=== PATIENT | female | born 2000 | race African-American/Black ===

== ENCOUNTER 2023-05-11 09:05 | Emergency (ER) | payer OTHER, SELFPAY ==
[2023-05-11 10:35] LABS: Bilirubin Negative (Negative); Blood, Urine Negative (Negative); CAUTI Indications for Culture Pelvic or flank pain; Clarity Clear (Clear); Glucose, Urine (Dipstick) Normal (Negative); Ketone, Urine Negative (Negative); Leukocyte 250 Leu/uL (Negative); Nitrite Negative (Negative); Protein, Urine (Dipstick) Negative (Neg-Trace); RBC/HPF 0-3 HPF (0-3); Specific Gravity, Urine 1.024 (1.002-1.036); Urobilinogen Normal mg/dL (Less than 2); WBC/HPF 21-50 HPF (0-3); pH, Urine 6.5 (5.0-9.0)
[2023-05-11 10:36] LABS: Bacteria/HPF 1+ HPF (None Seen); Pregnancy Test - Urine (BHCG) Negative (Negative); Pregu Control Background? CLEAR/WHITE (CLR/WHITE); Pregu Control Bar Appear? YES (CONTROL BAR); Specific Gravity 1.024 (1.002-1.036)
[2023-05-11 10:37] LABS: Urine Culture Reflex Yes Yes
[2023-05-11 11:23] LABS: SARS-CoV-2 NAA Rapid Test Not Detected (NotDetected)
== END 2023-05-11 11:00 | disposition home or self-care (01) ==
LOC: ERS 09:05
DX: N39.0 Urinary tract infection, site not specified (principal); R11.2 Nausea with vomiting, unspecified; Z20.822 Contact with and (suspected) exposure to COVID-19
CPT/HCPCS: 81001; 81025; 87077; 87086; 87186; 99284

== ENCOUNTER 2023-07-27 22:10 | Emergency (ER) | payer SELFPAY ==
[~2023-07-27 22:10] MED LIST: Iopamidol 370 76% 100 ML VIAL ONE
[2023-07-27 22:36] LABS: Bacteria/HPF None Seen HPF (None Seen); Bilirubin Negative (Negative); Blood, Urine Negative (Negative); CAUTI Indications for Culture Pelvic or flank pain; Clarity Clear (Clear); Glucose, Urine (Dipstick) Normal (Negative); Ketone, Urine 20 mg/dL (Negative); Leukocyte 250 Leu/uL (Negative); Nitrite Negative (Negative); Pregnancy Test - Urine (BHCG) Negative (Negative); Pregu Control Background? CLEAR/WHITE (CLR/WHITE); Pregu Control Bar Appear? YES (CONTROL BAR); Protein, Urine (Dipstick) 50 mg/dL (Neg-Trace); RBC/HPF 0-3 HPF (0-3); Specific Gravity 1.039 (1.002-1.036); Specific Gravity, Urine 1.039 (1.002-1.036); pH, Urine 5.5 (5.0-9.0)
[2023-07-27 22:37] LABS: Urine Culture Reflex No No
[2023-07-27 22:39] LABS: #Basophils 0.1 thou/uL (0.0-0.2); #Monocytes 0.9 thou/uL (0.11-0.59); #Neutrophils 10.5 thou/uL (1.40-6.50); %Basophils 0.5 % (0.0-1.0); %Eosinophils 0.1 % (0.0-10.0); %Lymphocytes 18.7 % (28.0-48.0); %Monocytes 6.3 % (0.0-4.0); %Neutrophils 74.2 % (31.0-61.0); Hematocrit 40.4 % (36.0-47.0); Hemoglobin 13.4 g/dL (12.0-16.0); Mean Corpuscular HGB CONC 33.2 g/dL (32.0-36.0); Mean Corpuscular Hemoglobin 27.4 pg (25.0-35.0); Mean Corpuscular Volume 82.6 fl (78.0-98.0); Mean Platelet Volume 9.2 fL (7.4-10.4); Platelet Count 313 10x3/uL (130-400); RBC Distribution Width 12.4 % (11.5-14.5); Red Blood Cell (RBC) Count 4.89 mill/uL (4.00-5.20); White Blood Cell (WBC) Count 14.2 10x3/uL (4.8-10.8)
[2023-07-28 00:10] LABS: ALT (SGPT) Less than 7 U/L (8-55); AST (SGOT) 10 U/L (5-34); Albumin 4.6 g/dL (3.5-5.0); Alkaline Phosphatase 59 U/L (40-100); Anion Gap 16 mmol/L (10-20); BUN (Urea Nitrogen) 9 mg/dL (7.0-18.7); Calc. Creatinine Clearance 0 mL/min (70-130); Calcium 9.5 mg/dL (7.8-10.44); Carbon Dioxide 23 mmol/L (22-29); Chloride 102 mmol/L (98-107); Estimated GFR 107; Globulin 3.3 g/dL (2.4-3.5); Protein, Total 7.9 g/dL (6.0-8.3); Sodium 138 mmol/L (136-145)
[2023-07-28 00:40] LABS: Glucose 84 mg/dL (70-105)
[2023-07-28 00:41] LABS: Bilirubin, Total 0.7 mg/dL (0.2-1.2)
[2023-07-28] MEDS ORDERED: Cephalexin 250 MG CAP ONE (01:14)
[2023-07-28] MEDS ORDERED: Potassium Chloride 20 MEQ TAB ONE (01:14)
== END 2023-07-28 01:37 | disposition home or self-care (01) ==
LOC: ERS 22:10
DX: N30.90 Cystitis, unspecified without hematuria (principal); E87.6 Hypokalemia
CPT/HCPCS: 36415; 74177; 80053; 81001; 81025; 85025; 96360; 96361; Q9967

== ENCOUNTER 2023-08-10 09:37 | Emergency (ER) | payer SELFPAY ==
[2023-08-10 10:43] LABS: SARS-CoV-2 NAA Rapid Test Not Detected (NotDetected)
== END 2023-08-10 09:58 | disposition home or self-care (01) ==
LOC: ERS 09:37
DX: B34.9 Viral infection, unspecified (principal)
CPT/HCPCS: 99283

== ENCOUNTER 2023-11-30 19:12 | Emergency (ER) | payer MEDICAID, SELFPAY | END 2023-11-30 21:54 | disposition home or self-care (01) | LOC: ERS 19:12 | DX: R19.7 Diarrhea, unspecified (principal) | CPT/HCPCS: 99283 ==